=== PATIENT | female | born 1960 | race Caucasian/White ===

== ENCOUNTER → 2017-06-13 | Outpatient (CLI) | payer OTHER ==
[2017-06-13 08:57] LABS: PLATELET COUNT, AUTOMATED 258 K/uL (150-450)
[2017-06-13 09:40] LABS: LDL CHOLESTEROL 111 mg/dl
== END ==
LOC: LAB 08:22
PROVIDERS: ATTEND Family Medicine Sports Medicine
DX: Z00.00 Encounter for general adult medical examination without abnormal findings (principal)
CPT/HCPCS: 36415; 82040; 82247; 82248; 82310; 82374; 82435; 82465; 82565; 82670; 82947; 83718; 84075; 84132; 84155; 84295; 84403; 84443; 84450; 84460; 84478; 84481; 84520; 85025; 86376